=== PATIENT | male | born 1940 | race Caucasian/White ===

== ENCOUNTER 2018-12-31 09:21 | Emergency (ER) | payer OTHER ==
[~2018-12-31] VITALS: Ht 188 cm; Wt 106.6 kg
[~2018-12-31 09:21] MED LIST: HYZAAR 100/25 T1 TAB; NORVASC2.5 M1
[2018-12-31] MEDS ORDERED: ATACAND32 MG (09:39)
[2018-12-31] MEDS ORDERED: ASA81 MG (09:40)
[2018-12-31] MEDS ORDERED: RESTORIL15 M1 (09:40)
[2018-12-31] MEDS ORDERED: LIPITOR20 MG (09:40)
[2018-12-31] MEDS ORDERED: NORFLEX100MG PO (12:42)
[2018-12-31] MEDS ORDERED: DICLOFENAC POTA50 MG PO (12:42)
== END 2018-12-31 12:51 | disposition home or self-care (01) ==
LOC: ER 09:21
DX: M54.2 Cervicalgia (principal); M54.6 Pain in thoracic spine; M54.5 Low back pain

== ENCOUNTER 2020-05-18 09:37 | Emergency (ER) | payer OTHER ==
[~2020-05-18] VITALS: Ht 188 cm; Wt 104.3 kg
[~2020-05-18 09:37] MED LIST changes: +ASA81 MG; +ATACAND32 MG; +DICLOFENAC POTA50 MG PO; +LIPITOR20 MG; +NORFLEX100MG PO; +RESTORIL15 M1
[2020-05-18] MEDS ORDERED: NORFLEX100MG PO (12:01)
[2020-05-18] MEDS ORDERED: KETO10TA2 PO (12:01)
== END 2020-05-18 12:37 | disposition home or self-care (01) ==
LOC: ER 09:37
DX: G89.29 Other chronic pain (principal); M54.89 Other dorsalgia; M54.2 Cervicalgia

== ENCOUNTER 2020-11-06 17:40 | Inpatient (IN) | payer OTHER ==
[~2020-11-06] VITALS: Ht 188 cm; Wt 102.5 kg
[~2020-11-06 17:40] MED LIST changes: +KETO10TA2 PO
[2020-11-13] MEDS ORDERED: NAMENDA10 MG PO (16:48)
[2020-11-13] MEDS ORDERED: NORVASC2.5 M1 PO (16:48)
[2020-11-13] MEDS ORDERED: ATACAND16 MG PO (16:48)
[2020-11-13] MEDS ORDERED: Neurin-Sl Tablet Sl SL (16:48)
[2020-11-13] MEDS ORDERED: TAMS0.4C PO (16:48)
[2020-11-13] MEDS ORDERED: Lipitor 10MG TABLET PO (16:48)
[2020-11-13] MEDS ORDERED: DULCOLAX STOOL100 M1 PO (16:48)
[2020-11-13] MEDS ORDERED: RESTORIL15 MG PO (16:48)
[2020-11-13] MEDS ORDERED: PROTONIX40 MG PO (16:48)
[2020-11-13] MEDS ORDERED: FAMOTIDINE20 MG PO (16:48)
[2020-11-13] MEDS ORDERED: INTEGRA PLUS C1 EACH PO (16:48)
== END 2020-11-13 19:40 | disposition home or self-care (01) | DRG 812 ==
LOC: ER 17:40 → MEDJ 11-07 12:53
PROVIDERS: ADMIT Internal Medicine; ATTEND Internal Medicine
PROC: 30233N1 Transfusion of Nonautologous Red Blood Cells into Peripheral Vein, Percutaneous Approach (ICD-10-PCS; 2020-11-07)
PROC: 0DJ08ZZ Inspection of Upper Intestinal Tract, Via Natural or Artificial Opening Endoscopic (ICD-10-PCS; principal; 2020-11-12)
DX: D64.9 Anemia, unspecified (principal); K26.3 Acute duodenal ulcer without hemorrhage or perforation; R10.13 Epigastric pain; G30.8 Other Alzheimer's disease; T39.395A Adverse effect of other nonsteroidal anti-inflammatory drugs [NSAID], initial encounter; F02.80 Dementia in other diseases classified elsewhere, unspecified severity, without behavioral disturbance, psychotic disturbance, mood disturbance, and anxiety; I10 Essential (primary) hypertension; E11.9 Type 2 diabetes mellitus without complications; Z20.822 Contact with and (suspected) exposure to COVID-19; Z79.4 Long term (current) use of insulin